=== PATIENT | female | born 1970 | race Caucasian/White ===

== ENCOUNTER 2019-02-08 16:23 | Observation (INO) | payer BC ==
[2019-02-08] MEDS ORDERED: cloNIDine 0.1 MG TAB ONE (17:40)
[2019-02-08] MEDS ORDERED: Senokot S 8.6-50 MG TAB PO PRN (19:19)
[2019-02-08] MEDS ORDERED: Acetaminophen 325 MG TAB PO PRN (19:19)
[2019-02-08] MEDS ORDERED: Guaifenesin DM 100-10/5 ML UDCUP PO PRN (19:19)
[2019-02-08] MEDS ORDERED: Aspirin 325 MG TAB PO SCH (19:30)
--- NOTE | 2019-02-08 19:42 | MRI ---
Noncontrast enhanced MRI images brain. HISTORY: Numbness and tingling. Multiplanar multisequence noncontrast enhanced MRI images brain obtained. Motion artifact does decrease sensitivity for detection of pathology. Left maxillary sinus mucosal thickening is seen. The brain is unremarkable. No evidence of intracranial masses, hemorrhages, strokes or contusion seen. Normal flow void seen in the major intracranial vessels. IMPRESSION: Unremarkable noncontrast enhanced MRI images of the brain.
--- NOTE | 2019-02-08 20:01 | HP ---
REASON FOR ADMISSION: TIA. HISTORY OF PRESENT ILLNESS: The patient gives history of developing right-sided paresthesias in the afternoon. This happened while she was trying to use the restroom. Her entire right upper and lower extremity, right face and right half of her lips were numb. She felt like she was paralyzed, could not move it. The patient went to [facility] ER, and by the time she reached there, she was already feeling better, but right now, she still has numbness in her right hand and fingers. She also feels the same in her toes. The patient states she has had something similar on the left side 5 years back and completely got resolved, likely TIA. On arrival at the [facility], the patient's systolic blood pressures were more than 210. She has been off her hypertension medications for last 3 weeks or so. At present, her blood pressure has come down to 150. She has received multiple medications in the ER here and at [facility] as well. I am told she was given labetalol and clonidine. This information is from ER physician here. She has no complaints of chest pain, palpitation, PND, or orthopnea. She has some slight headache at present. This is in the frontal area. No complaints of fever, diarrhea, cough, or expectoration. No complaints of urinary symptoms. PAST MEDICAL HISTORY: 1. History of hypertension, has been on and off medications. At least on 2 occasions, her primary care physician took her off medications as her blood pressure was low. 2. Gestational diabetes. 3. Obesity. PAST SURGICAL HISTORY: 1. Cholecystectomy done 22 years ago. 2. Tonsillectomy. 3. Adenoidectomy. CURRENT MEDICATIONS: Motrin p.r.n. ALLERGIES: NO KNOWN DRUG ALLERGIES. PERSONAL HISTORY: Smokes half pack a day. Does not abuse alcohol or drugs. Lives with her and 2 children. FAMILY HISTORY: Mother at the age of 62 years. She had end-stage renal disease, on dialysis, diabetes mellitus type 2 with wounds leading up to bilateral lower extremity amputations, hypertension. Father is living and has hypertension and diabetes. Code status is full. Power of family law attorney is her . REVIEW OF SYSTEMS: CONSTITUTIONAL: Negative for weight loss or gain, ability to conduct usual activities. SKIN: Negative for rash, itching. EYES: Negative for double vision, pain. ENT/MOUTH: Negative for nose bleeding, neck stiffness, pain, tenderness. CARDIOVASCULAR: Negative for palpitations, dyspnea on exertion, orthopnea. RESPIRATORY: Negative for shortness of breath, wheezing, cough, hemoptysis, fever or night sweats. GASTROINTESTINAL: Negative for poor appetite, abdominal pain, heartburn, nausea , vomiting, constipation, or diarrhea. GENITOURINARY: Negative for urgency, frequency, dysuria, nocturia. MUSCULOSKELETAL: Negative for pain, swelling. NEUROLOGIC/PSYCHIATRIC: Negative for anxiety, depression. ALLERGY/IMMUNOLOGIC: Negative for skin rash, bleeding tendency. PHYSICAL EXAMINATION: GENERAL: The patient is a 48-year-old female, who is currently not in any acute distress. VITAL SIGNS: Blood pressure 150/74, pulse 80 per minute, respiratory rate 18 per minute, temperature 98 degrees Fahrenheit, saturating 97% on room air. NECK: Supple. No elevated JVD. HEENT: Eyes; extraocular muscles intact. Pupils reacting to light. Oral cavity; mucous membranes are dry. No exudates or congestion. CARDIOVASCULAR SYSTEM: S1 and S2 heard. Regular rhythm. RESPIRATORY SYSTEM: Air entry 1+ bilateral. No rales or rhonchi. ABDOMEN: Soft. Bowel sounds heard. No tenderness, rigidity, or guarding. EXTREMITIES: No peripheral edema or calf tenderness. VASCULAR SYSTEM: Peripheral pulses 2+ bilateral. No ischemic ulcerations or gangrene. CENTRAL NERVOUS SYSTEM: Cranial nerves are grossly intact. MOTOR SYSTEM: Strength is 5/5 in all 4 extremities. Please note, the patient is left handed. Reflexes are 2+ bilateral. Babinski is downgoing. The patient has paresthesias on right hand and fingers, especially on her thumb. The gait was not tested. PSYCHIATRIC SYSTEM: The patient's mood is euthymic. No hallucinations or delusions. LABORATORY DATA: EKG done shows normal sinus rhythm at 89 beats per minute. Please note, all her labs were done at [facility]. Labs done at [facility] accompanying patient shows CT brain, no acute intracranial abnormalities. Sodium 136, potassium 3.8, chloride 102, serum bicarb 25, BUN 18 , creatinine 0.6, serum glucose 113. White count of 10, H and H 13 and 40, platelet count 322. MCV is 92 with 66% neutrophils. Chest x-ray done shows no acute thoracic abnormality. Serum test was negative. IMPRESSION AND PLAN: The patient will be under observation on stroke unit for transient ischemic attack with right-sided weakness and paresthesias, most of which is resolving. The patient has had similar episode on her left side 5 years back. The patient had hypertensive emergency on arrival at [facility]. Currently, her systolic blood pressures are in the 150s. We will place her on a small dose of Lopressor 25 mg twice daily. We will not lower her systolic blood pressures any further due to the patient's arrival diagnosis of TIA. She will be on full dose aspirin and Lipitor 40 mg daily. We will obtain MRI of the brain, echo with 2D Doppler for LV function, urine and serum drug screen, HbA1c with serum glucose of 113. Folic acid and vitamin B12 will be obtained. Lipid profile in the morning. We will obtain Neurology consultation with Dr. Lorena Lopes, who is warning coordination meteorologist. Stroke Team will be involved. Job ID: [id number] MTDD
[2019-02-08 20:06] LABS: Hemoglobin A1c 5.6 % (4.0-6.0)
[2019-02-08] MEDS: Famotidine 20 MG TAB PO SCH ×2 (20:20→20:21)
[2019-02-08] MEDS: Metoprolol Tartrate 25 MG TAB PO SCH (20:20)
[2019-02-08 20:28] LABS: Acetaminophen Less than 6.0 mcg/mL (10.0-30.0); Alcohol Less than 10 mg/dL (Less than 10); Salicylate Less than 8.0 mg/dL (15.0-30.0)
[2019-02-08 20:30] LABS: Amphetamine Not Detected (NotDetected); Barbiturates Screen Not Detected (NotDetected); Benzodiazepine Screen Not Detected (NotDetected); Cocaine Metabolite Screen Not Detected (NotDetected); Medtox Reader # READER 4; Methadone Not Detected (NotDetected); Methamphetamine Not Detected (NotDetected); Opiate Screen Not Detected (NotDetected); Oxycodone Screen Not Detected (NotDetected); Phencyclidine (PCP) Not Detected (NotDetected); THC/Cannabinoid Screen Not Detected (NotDetected); Tricyclic Screen Not Detected (NotDetected)
[2019-02-08 20:31] LABS: Medtox Control Line Valid? VALID (VALID)
[2019-02-08 20:51] LABS: Folate (Folic Acid) 13.4 ng/mL (7.0-31.4)
[2019-02-08] MEDS ORDERED: Atorvastatin Calcium 40 MG TAB PO SCH (21:00)
[2019-02-08 21:25] VITALS: BMI 31.3
[2019-02-09] MEDS ORDERED: hydrALAZINE 20 MG/ML VIAL SLOW IVP PRN (03:36)
[2019-02-09] MEDS ORDERED: cloNIDine 0.1 MG TAB PO PRN (03:36)
[2019-02-09 05:55] LABS: #Basophils 0.1 thou/uL (0.0-0.2); #Eosinphils 0.1 thou/uL (0.0-0.7); #Lymphocytes 2.6 thou/uL (1.20-3.40); #Monocytes 0.8 thou/uL (0.11-0.59); #Neutrophils 6.7 thou/uL (1.40-6.50); %Basophils 0.9 % (0.0-1.0); %Eosinophils 1.3 % (0.0-10.0); %Lymphocytes 25.4 % (21.0-51.0); %Monocytes 7.3 % (0.0-10.0); %Neutrophils 65.1 % (42.0-75.0); Hemoglobin 12.1 g/dL (12.0-16.0); Mean Corpuscular HGB CONC 34.1 g/dL (32.0-36.0); Mean Corpuscular Hemoglobin 32.5 pg (27.0-31.0); Mean Corpuscular Volume 95.5 fL (78.0-98.0); Mean Platelet Volume 7.9 fL (7.4-10.4); Platelet Count 281 thou/uL (130-400); RBC Distribution Width 12.2 % (11.5-14.5); Red Blood Cell (RBC) Count 3.73 mill/uL (4.20-5.40); White Blood Cell (WBC) Count 10.3 thou/uL (4.8-10.8)
[2019-02-09 06:21] LABS: Anion Gap 11 mmol/L (10-20); BUN (Urea Nitrogen) 18 mg/dL (7.0-18.7); Calc. Creatinine Clearance 126 mL/min (70-130); Calcium 9.1 mg/dL (7.8-10.44); Carbon Dioxide 24 mmol/L (22-29); Cardiac Risk 4.9 (Less than 4.5); Chloride 106 mmol/L (98-107); Cholesterol 194 mg/dl (< 200 Desired); Estimated GFR-MDRD 87; Glucose 189 mg/dL (70-105); HDL Cholesterol 40 mg/dL (>60 Neg Risk); LDL Cholesterol, Calculated 109 mg/dL; Potassium 3.6 mmol/L (3.5-5.1); Sodium 137 mmol/L (136-145); Triglycerides 225 mg/dL (Less than 150)
[2019-02-09] MEDS ORDERED: Lisinopril 5 MG TAB PO SCH (09:00)
[2019-02-09] MEDS ORDERED: Enoxaparin Sodium 40 MG/0.4 ML SYRINGE SC SCH (09:00)
[2019-02-09] MEDS ORDERED: Aspirin 325 mg Enteric Coated Tablet PO SCH (09:00)
[2019-02-09] MEDS: Famotidine 20 MG TAB PO SCH (09:09)
[2019-02-09] MEDS: Metoprolol Tartrate 25 MG TAB PO SCH (09:10)
--- NOTE | 2019-02-09 10:57 | CT ---
CT arteriogram neck with IV contrast and 3-D imaging CT arteriogram head with IV contrast and 3-D imaging CT brain with and without IV contrast HISTORY: Altered mental status. Right-sided numbness and tingling. COMPARISON: MRI brain 02/08/2019. FINDINGS: There is no evidence of acute intracranial hemorrhage or infarct. Ventricles appear normal in size, shape and position. There is no mass effect, shift of midline structures, or abnormal areas of contrast enhancement. Mucosal thickening within the floor of the left maxillary sinus. Normal branching great vessels at the aortic arch. Good contrast flow into each carotid and vertebral system. Each carotid bifurcation is widely patent. Each cervical internal carotid artery is very tortuous. Mild calcification within each internal carotid artery at the brain base. [place] is intact. Good flow into each cerebral system. IMPRESSION: No evidence of significant arterial vascular disease. Mild atherosclerosis. No acute intracranial abnormalities are demonstrated.
--- NOTE | 2019-02-09 11:17 | CON ---
DATE OF CONSULTATION: 02-09-19 TELEMEDICINE CONSULTATION WITH RACHEL PEMBERTON CHIEF COMPLAINT: Numbness and weakness on the right side. HISTORY OF PRESENT ILLNESS: The patient is a 48-year-old lady, who reports she was fast asleep and woke up yesterday morning. She woke up slowly and nocturnally. She felt like something was wrong with the right side. She got up to go the restroom. She felt her right arm and leg went weak and she fell over. She had numbness on the right side. Today, the numbness is better. She still has numbness of the lip, half of her tongue, and tips of her fingers. She also feels tingly. There is no history of headache. No loss of consciousness. Five years ago, she had a similar event that lasted few minutes. PREVIOUS MEDICAL HISTORY: Positive for hypertension, gestational diabetes, and hypercholesterolemia. PAST SURGICAL HISTORY: Cholecystectomy 20 years ago and tonsillectomy and adenoidectomy 40 years ago. FAMILY HISTORY: One sister is 31 to 32 years old. The patient did not keep in touch with her. Mother at 65 from kidney failure. She has also had diabetes, bilateral amputations in her legs, COPD, and hypertension. Father aged 72 and is hypertensive. The patient has six children ranging from 9 to 24 years, all of them are healthy. SOCIAL HISTORY: She smoked till yesterday and she decided after yesterday's events, she is no longer going to smoke. She does not drink alcohol. She cooks and her weight is stable. Lives with her family. ALLERGIES: NO KNOWN DRUG ALLERGIES. REVIEW OF SYSTEMS: PULMONARY: Negative for shortness of breath. CARDIAC: Negative for palpitations or chest pain. GI: Negative for nausea, vomiting, or diarrhea. HEMATOLOGIC: Negative for bleeding diathesis or anemia. DERMATOLOGIC: Negative for itching. RHEUMATOLOGIC: Negative for arthritis. LABORATORY DATA: Current lab workup; white count 10.3, hematocrit 35.6, hemoglobin 12.1, and platelets 281. Chemistry; sodium 137, potassium 3.6, chloride 106, bicarb 24, BUN 18, creatinine 0.72, glucose 189, triglycerides 225, calcium 9.1, cholesterol 194, LDL 109, and HDL 40. Heart disease risk ratio 4.9. Vitamin B12 of 375 and folate 13.4. Urine tox screen is negative. PHYSICAL EXAMINATION: VITAL SIGNS: Blood pressure was 148/83, pulse is 73, temperature 97.6, and respiratory rate 16. GENERAL APPEARANCE: Well-built, well-nourished, slightly overweight lady. CHEST: Clear vesicular breathing. CARDIOVASCULAR: S1 and S2 heard. No murmurs. Carotids are clear. ABDOMEN: Soft and nontender. No organomegaly noted. NEUROLOGIC: Motor, bulk normal. Tone normal. Strength 5/5 in upper and lower extremities and muscle groups tested are iliopsoas, hamstrings, quadriceps, ankle dorsiflexion and plantar flexion, deltoid, biceps, triceps, wrist extension and flexion, and finger extension and flexion. Deep tendon reflexes were 1+ throughout. Cerebellar, normal [id number] and [id number]. Sensory, normal to touch. IMPRESSION: The patient is a 48-year-old lady, who had a neurologic event yesterday morning with sudden onset right-sided weakness along with numbness including face and tongue numbness. She reports she had extremely high blood pressure at the time of the event and she had a similar event five years ago. Her MRI of the brain is unremarkable and does not show any acute event such as any acute infarct and no white matter changes were seen. At this time, her diagnosis is most consistent with a transient ischemic attack, which is resolving during this time. Her examination was normal. RECOMMENDATIONS: Agree with aspirin with Lipitor for stroke prevention. Education is needed about her diet and modification of her lifestyle including exercise regimen. Please complete a CT angiogram of the head and neck to be sure. There is no vaso-occlusive disease since she is only 48 years old. If CTA is negative, she can be discharged home. I will follow up with you tomorrow if she is still here. Job ID: [id number] [facility]
[2019-02-09 11:52] VITALS: BP 149/77
[2019-02-09 11:53] VITALS: TEMP 98.4
[2019-02-09] MEDS ORDERED: ISOVUE-370 76%-LOCM 1 ML ONE (15:46)
--- NOTE | 2019-02-09 16:09 | DIS ---
DATE OF ADMISSION: 02/08/2019 DATE OF DISCHARGE: 02/09/2019 DISCHARGE DISPOSITION: Home. PRIMARY DISCHARGE DIAGNOSES: Transient ischemic attack with right-sided paresthesias resolved, hypertensive emergency on arrival resolved, obesity, history of gestational diabetes likely prediabetic, and tobacco abuse. PROCEDURES DONE DURING HOSPITALIZATION: MRI brain was unremarkable. No evidence of intracranial mass, hemorrhage, stroke, or contusions were seen. CT angio of brain showed no evidence of significant arterial vascular disease. Mild atherosclerosis was seen. No acute intracranial abnormalities were seen. H and H 12 and 35, platelet count 281, white count of 10, and MCV is 95. BUN and creatinine 18 and 0.7. Triglycerides 225, total cholesterol 194, LDL 109, and HDL 40. B12 of 375 , folic acid 13.4, and HbA1c 5.6. Urine tox screen was negative. Plasma alcohol less than 10. DISCHARGE MEDICATIONS: 1. Aspirin 81 mg p.o. daily. 2. Lipitor 40 mg p.o. at bedtime. 3. Lisinopril 5 mg twice daily. 4. Lopressor 25 mg twice daily. ALLERGIES: NO KNOWN DRUG ALLERGIES. INPATIENT CONSULT: Dr. Moses Carrillo for Neurology. DISCHARGE PLAN: The patient to follow up with primary care physician in 1 week. BRIEF COURSE DURING HOSPITALIZATION: The patient initially came to ER with complaints of right-sided weakness and paresthesias. She initially went to [facility] Emergency Room from where she was transferred here. She was essentially placed under observation on stroke unit for TIA. Most of her weakness completely resolved on arrival here. She still had paresthesias on arrival. She has had complete stroke workup done. Initial CT scan done at [facility] Emergency Room did not reveal any acute infarct or bleed. MRI done was unremarkable. She had CT angio of brain as well, which does not reveal any stenosis or dissection. The patient had hypertensive emergency on arrival with systolic blood pressures more than 200 on arrival at [facility] ER. Her hypertension has been adequately controlled during the brief stay here. She was evaluated by Dr. Moses Carrillo for Neurology. The patient has been counseled with regard to medication compliance, dietary compliance, and followups with primary care physician. She has been advised to check blood pressure twice daily along with pulse for a period of 10 days to record and follow up with primary care physician for any changes in her medications. Likely her symptoms were related to hypertensive emergency, which is resolved at present. She is hemodynamically and neurologically stable prior to discharge. Please note, I have seen and examined the patient on the day of discharge. Job ID: [id number] MTDD
== END 2019-02-09 13:37 | disposition home or self-care (01) ==
LOC: ERS 16:23 → 2SE 19:26
PROVIDERS: ADMIT Internal Medicine; ATTEND Internal Medicine
DX: G45.9 Transient cerebral ischemic attack, unspecified (principal); I16.1 Hypertensive emergency; I10 Essential (primary) hypertension; F17.210 Nicotine dependence, cigarettes, uncomplicated; E78.00 Pure hypercholesterolemia, unspecified; E66.9 Obesity, unspecified; Z68.31 Body mass index [BMI] 31.0-31.9, adult
CPT/HCPCS: 36415; 70496; 70498; 70551; 80048; 80061; 80306; 80307; 82607; 82746; 83036; 85025; 93005; 93306; 96372; 99406; G0378; J1650; Q9966